=== PATIENT | male | born 1965 | race Caucasian/White ===

== ENCOUNTER 2018-08-26 20:02 | Emergency (ER) | payer BC, OTHER ==
[~2018-08-26] VITALS: Ht 182.9 cm; Wt 71.0 kg
[2018-08-26 20:03] VITALS: BP 156/99
[2018-08-26] MEDS ORDERED: TETanus/Pertussis (Acell)/Diphther VAC/PF (Tdap-Adult) 0.5ml syringe IM ONE (20:10)
[2018-08-26] MEDS ORDERED: proparacaine 0.5% ophthalmic drops 15ml LEFTEYE ONE (20:10)
[2018-08-26] MEDS ORDERED: CIPR2.5D18 LEFTEYE (20:52)
[2018-08-26] MEDS ORDERED: ERYT1OIN6 LEFTEYE (20:52)
== END 2018-08-26 21:11 | disposition home or self-care (01) ==
LOC: ER 20:03
DX: T15.02XA Foreign body in cornea, left eye, initial encounter (principal); X58.XXXA Exposure to other specified factors, initial encounter; Y93.89 Activity, other specified; Y92.89 Other specified places as the place of occurrence of the external cause; Y99.8 Other external cause status
CPT/HCPCS: 65222; 99284